=== PATIENT | male | born 1985 | race American Indian/Alaskan Native ===

== ENCOUNTER 2019-04-22 12:31 | Emergency (ER) | payer SELFPAY ==
[2019-04-22 13:20] VITALS: BP 117/75
--- NOTE | 2019-04-22 13:20 | Event Note ---
ED Screening Note Date of service: 04/22/19 Time: 13:17 ED Screening Note: 34 y o male presents with right lower jaw swelling and pain worsening in the past 2 days causing pain with swallowing fluids This initial assessment/diagnostic orders/clinical plan/treatment(s) is/are subject to change based on patients health status, clinical progression and re- assessment by fellow clinical providers in the ED. Further treatment and workup at subsequent clinical providers discretion. Patient/guardian urged not to elope from the ED as their condition may be serious if not clinically assessed and managed. Initial orders include: acc eval facial absces: I&D
--- NOTE | 2019-04-22 15:11 | Emergency Department Report ---
ED ENT HPI - General Chief complaint: Dental/Oral Stated complaint: FACIAL PAIN AND SWELLING Time Seen by Provider: 04/22/19 15:05 Source: patient Mode of arrival: Ambulatory Limitations: No Limitations - History of Present Illness MD complaint: tooth pain -: Gradual, days(s) Location: tooth # Severity: mild, moderate Quality: aching, dull Consistency: constant Improves with: none Worsens with: swallowing, eating Context- Dental: poor dental care Associated Symptoms: toothache. denies: sore throat, tinnitus, discharge from ear, rhinorrhea - Related Data Previous Rx's Medication Instructions Recorded Last Taken Type Mupirocin [Bactroban 2% Oint] 1 applic TP TID #1 tube 11/29/14 Unknown Rx traMADoL [Ultram] 50 mg PO Q6HR PRN #20 tablet 11/29/14 Unknown Rx Amoxicillin [Amoxicillin TAB] 875 mg PO BID #20 tablet 04/22/19 Unknown Rx Chlorhexidine Mouthwash [Peridex] 15 ml MM BID #473 bottle 04/22/19 Unknown Rx Ketorolac [Toradol] 10 mg PO Q6H PRN #15 tablet 04/22/19 Unknown Rx Lidocaine Viscous 2% 5 ml MM Q3H PRN #120 udc 04/22/19 Unknown Rx Allergies Allergy/AdvReac Type Severity Reaction Status Date / Time No Known Allergies Allergy Unverified 11/29/14 15:11 ED Dental HPI - General Chief complaint: Dental/Oral Stated complaint: FACIAL PAIN AND SWELLING Time Seen by Provider: 04/22/19 15:05 Source: patient Mode of arrival: Ambulatory Limitations: No Limitations - Related Data Previous Rx's Medication Instructions Recorded Last Taken Type Mupirocin [Bactroban 2% Oint] 1 applic TP TID #1 tube 11/29/14 Unknown Rx traMADoL [Ultram] 50 mg PO Q6HR PRN #20 tablet 11/29/14 Unknown Rx Amoxicillin [Amoxicillin TAB] 875 mg PO BID #20 tablet 04/22/19 Unknown Rx Chlorhexidine Mouthwash [Peridex] 15 ml MM BID #473 bottle 04/22/19 Unknown Rx Ketorolac [Toradol] 10 mg PO Q6H PRN #15 tablet 04/22/19 Unknown Rx Lidocaine Viscous 2% 5 ml MM Q3H PRN #120 udc 04/22/19 Unknown Rx Allergies Allergy/AdvReac Type Severity Reaction Status Date / Time No Known Allergies Allergy Unverified 11/29/14 15:11 ED Review of Systems ROS: Stated complaint: FACIAL PAIN AND SWELLING Other details as noted in HPI Comment: All other systems reviewed and negative ED Past Medical Hx - Past Medical History Previous Medical History?: No - Surgical History Past Surgical History?: No - Social History Smoking Status: Never Smoker Substance Use Type: None - Medications Home Medications: Home Medications Medication Instructions Recorded Confirmed Last Taken Type Mupirocin [Bactroban 2% Oint] 1 applic TP TID #1 tube 11/29/14 Unknown Rx traMADoL [Ultram] 50 mg PO Q6HR PRN #20 tablet 11/29/14 Unknown Rx Amoxicillin [Amoxicillin TAB] 875 mg PO BID #20 tablet 04/22/19 Unknown Rx Chlorhexidine Mouthwash [Peridex] 15 ml MM BID #473 bottle 04/22/19 Unknown Rx Ketorolac [Toradol] 10 mg PO Q6H PRN #15 tablet 04/22/19 Unknown Rx Lidocaine Viscous 2% 5 ml MM Q3H PRN #120 udc 04/22/19 Unknown Rx ED Physical Exam - General Limitations: No Limitations General appearance: alert, in no apparent distress - Head Head exam: Present: atraumatic, normocephalic - Eye Eye exam: Present: normal appearance, PERRL, EOMI Pupils: Present: normal accommodation - ENT ENT exam: Present: normal exam, normal orophraynx, mucous membranes moist, other (swelling to the right mandibular region in addition to the right. No lesions are appreciated no active bleeding or discharge noted. Airway patent tongue and uvula are midline.) - Expanded ENT Exam Expanded Ear exam: Present: normal external inspection Teeth exam: Present: dental caries Throat exam: Positive: other (lymphadenopathy noted) - Neck Neck exam: Present: normal inspection, full ROM, lymphadenopathy - Respiratory Respiratory exam: Present: normal lung sounds bilaterally. Absent: respiratory distress, wheezes, rales, chest wall tenderness, accessory muscle use - Cardiovascular Cardiovascular Exam: Present: regular rate, normal rhythm. Absent: tachycardia, irregular rhythm, systolic murmur, diastolic murmur, rubs, gallop - GI/Abdominal GI/Abdominal exam: Present: soft, normal bowel sounds. Absent: tenderness, guarding, rebound, hyperactive bowel sounds, hypoactive bowel sounds, organomegaly - Rectal Rectal exam: Present: deferred - Extremities Exam Extremities exam: Present: normal inspection, full ROM, normal capillary refill - Back Exam Back exam: Present: normal inspection, full ROM. Absent: CVA tenderness (R), CVA tenderness (L), paraspinal tenderness, vertebral tenderness - Neurological Exam Neurological exam: Present: alert, oriented X3, CN II-XII intact, normal gait. Absent: motor sensory deficit, reflexes normal - Psychiatric Psychiatric exam: Present: normal affect, normal mood - Skin Skin exam: Present: warm, dry, intact, normal color. Absent: rash, diaphoretic, erythema, vesicles, petechiae, abrasion, ecchymosis ED Course Vital Signs 04/22/19 13:16 Temperature 99.4 F Pulse Rate 102 H Respiratory 16 Rate Blood Pressure 117/75 O2 Sat by Pulse 96 Oximetry Critical care attestation.: If time is entered above; I have spent that time in minutes in the direct care of this critically ill patient, excluding procedure time. ED Disposition Clinical Impression: Infected dental caries Disposition: TO HOME OR SELFCARE Is pt being admited?: No Does the pt Need Aspirin: No Condition: Stable Instructions: Dental Abscess (ED), Dental Caries (ED), Toothache (ED) Prescriptions: Amoxicillin [Amoxicillin TAB] 875 mg PO BID #20 tablet Lidocaine Viscous 2% 5 ml MM Q3H PRN #120 udc PRN Reason: Pain, Moderate (4-6) Chlorhexidine Mouthwash [Peridex] 15 ml MM BID #473 bottle Ketorolac [Toradol] 10 mg PO Q6H PRN #15 tablet PRN Reason: Pain Referrals: [facility] [Provider Group] - 3-5 Days
== END 2019-04-22 15:51 | disposition home or self-care (01) ==
LOC: ED 12:31
DX: K02.9 Dental caries, unspecified (principal); Z79.899 Other long term (current) drug therapy
CPT/HCPCS: 99282